=== PATIENT | male | born 1945 | race Caucasian/White ===

== ENCOUNTER → 2017-05-19 | Outpatient (CLI) | payer OTHER ==
[~2017-05-19] MED LIST: ALAVERT10 M1 PO; ATORVASTATIN CA20 MG PO; CIALIS20 MG PO; ECOTRIN81 MG PO; FISH OIL 1,001000 M1 PO; PLAVIX 75 MG TA75 MG PO; POTASSIUM GLUC500 MG PO; TOPROL XL25 MG PO; VALACYCLOVIR1000 MG PO
--- NOTE | 2017-05-30 21:48 | ONC ---
[place] [address] RADIATION ONCOLOGY NOTE Name: SONAM VALENCIA Room: [facility]#: [id number] Admission: 05/19/17 Attend Phys: Juan Carlos Jackson MD Discharge: Date of : 41 Report #: [id number] THIS REPORT FOR: //name// CC: Juan Carlos Lund DATE OF SERVICE: 05/19/2017 REFERRING PHYSICIANS: Samra Mendez MD; Aniceto Davis MD: and Geoff Oh MD. [facility] phone is [phone]. PRIMARY SITE AND HISTOPATHOLOGY: The patient received chemoradiotherapy for a stage STEPHENIE base of tongue cancer. He underwent a neck dissection. He completed his radiation therapy on 06/19/2013. PROCEDURE: Nasopharyngolaryngoscopy. FINDINGS: On nasopharyngolaryngoscopy via the left nostril after administration of a small amount of 2% viscous lidocaine orally and 2% viscous lidocaine to the left nostril via a cotton swab, there were no visible lesions in the nasopharynx, there were no visible lesions in the posterior oropharynx and there were no visible lesions involving the base of tongue. The true vocal cords were normally mobile bilaterally without any visible lesions. There was no evidence of head and neck cancer. Thank you for allowing me to participate in the care of this patient. <ELECTRONICALLY SIGNED> By: Juan Carlos Jackson MD 05/30/17 2148 1112 1151Djill Jackson MD /nt
--- NOTE | 2017-05-30 21:56 | ONC ---
[address] [address] RADIATION ONCOLOGY NOTE Name: SONAM VALENCIA Room: [facility]#: [id number] Admission: 05/19/17 Attend Phys: Juan Carlos Jackson MD Discharge: Date of : 41 Report #: [id number] THIS REPORT FOR: //name// CC: Juan Carlos Oh MD DATE OF SERVICE: 05/19/2017 REFERRING PHYSICIANS: Samra Mendez MD; Aniceto Davis MD; Patricio Lund DO and Geoff Oh MD. [facility] phone is [phone]. PRIMARY SITE AND HISTOPATHOLOGY: The patient had findings consistent with a stage STEPHENIE base of tongue cancer. The patient underwent a neck dissection that was followed by chemoradiotherapy. Radiation treatments were completed on 06/19/2013. INTERVAL NOTE: The patient has a good appetite. He has xerostomia that effects how he is able to eat certain foods. It is a little more difficult to eat dry foods. SOCIAL HISTORY: The patient is retired. He is . He has 2 daughters. Cigarettes: he smoked for about 10-20 years and he quit smoking around 01/2013. MEDICATIONS: Atorvastatin, Cialis, Ecotrin, valacyclovir, loratadine, metoprolol ER. REVIEW OF SYSTEMS: RESPIRATORY: The patient's breathing was baseline. The patient was not short of breath during his appointment. MUSCULOSKELETAL: He had good range of motion of his upper extremities. PHYSICAL EXAMINATION: VITAL SIGNS: The patient weighed 197 pounds on 05/19/2017 and 199 pounds on 09/21/2016. On 05/19/2017, blood pressure was 122/70, pulse was 61, respirations were 18, oxygen saturation was 96%. LYMPH NODES: He had no palpable cervical or supraclavicular lymphadenopathy. HEAD, EYES, EARS, NOSE AND THROAT: Mouth had no suspicious visible lesions or suspicious palpable lesions. On nasopharyngolaryngoscopy after administration of a small amount of 2% viscous lidocaine orally and 2% viscous lidocaine to the left nostril using a cotton swab, there were no visible lesions in the nasopharynx and no visible lesions in the posterior oropharynx[place] [address] RADIATION ONCOLOGY NOTE Name: SONAM VALENCIA Room: [facility]#: [id number] Admission: 05/19/17 Attend Phys: Juan Carlos Jackson MD Discharge: Date of : 41 Report #: [id number] visible lesions involving the base of tongue. The true vocal cords were normally mobile bilaterally without any visible lesions. HEART: Had a regular rate and rhythm without murmur. LUNGS: were clear to auscultation. LABORATORY DATA: From 05/11/2017, TSH was 3.19, which is within normal limits. ASSESSMENT AND PLAN: 1. History of head and neck cancer- There is no evidence of head and neck cancer at this time. The patient was given a requisition for a TSH around 01/2018 and the patient was asked to schedule a follow up appointment to see me afterwards. 2. Dental care- The patient continues to use fluoride trays and follows up with his dentist who prescribes fluoride to apply to his teeth. 3. Smoking history- The patient quit smoking in 2012. A requisition will be written for a screening chest CT for the patient. 4. Hyperlipidemia- The patient takes atorvastatin and that is managed by his referring physicians. 5. Hypertension- The patient takes metoprolol ER and that is managed by his referring physicians. Thank you for allowing me to participate in the care of this patient. <ELECTRONICALLY SIGNED> By: Juan Carlos Jackson MD 05/30/17 2156 1118 1243Djill Jackson MD /nt
== END | disposition home or self-care (01) ==
LOC: M.RTH 02:30
DX: Z85.810 Personal history of malignant neoplasm of tongue (principal); I10 Essential (primary) hypertension; E78.5 Hyperlipidemia, unspecified; Z87.891 Personal history of nicotine dependence; Z79.899 Other long term (current) drug therapy

== ENCOUNTER → 2018-01-12 | Outpatient (CLI) | payer OTHER ==
--- NOTE | ~2018-01-12 | ONC ---
[place] [address] RADIATION ONCOLOGY NOTE Name: VALENCIASONAM ANN Room: [facility]#: [id number] Admission: 01/12/18 Attend Phys: Juan Carlos Jackson MD Discharge: Date of : 41 Report #: [id number] THIS REPORT FOR: //name// CC: Juan Carlos Mendez DATE OF SERVICE: 01/12/2018 REFERRING PHYSICIANS: Dr. Samra Mendez, Aniceto Davis MD; Geoff Oh MD and Dr. Patricio Mike. [facility] phone number is [phone]. PRIMARY SITE AND HISTOPATHOLOGY: The patient received chemoradiotherapy for stage 4A base of tongue cancer. He underwent a neck dissection. He completed his radiation therapy on 06/19/2013. Findings on nasopharyngolaryngoscopy via the left nostril after administration of a small amount of 2% viscous lidocaine orally and 2% viscous lidocaine to the left nostril via cotton swab, there were no visible lesions in the nasopharynx and no visible lesions in the posterior oropharynx and no visible lesions involving the base of tongue. The true vocal cords are normally mobile bilaterally without visible lesions. There is no evidence of head and neck cancer. Thank you for allowing me to participate in the care of this patient. By: 1140 MD kerline Boone
--- NOTE | ~2018-01-12 | ONC ---
[address] [address] RADIATION ONCOLOGY NOTE Name: SONAM VALENCIA Room: [facility]#: [id number] Admission: 01/12/18 Attend Phys: Juan Carlos Jackson MD Discharge: Date of : 41 Report #: [id number] THIS REPORT FOR: //name// CC: Juan Carlos Mendez DATE OF SERVICE: 01/12/2018 REFERRING PHYSICIANS: Dr. Samra Mendez, Dr. Aniceto Davis, Dr. Patricio Lund and Geoff Oh MD [facility] phone is [phone]. PRIMARY SITE AND HISTOPATHOLOGY: The patient had findings consistent with a stage 4A base of tongue cancer. The patient underwent a neck dissection that was followed by chemoradiotherapy. Radiation treatments were completed on 06/19/2013. INTERVAL NOTE: The patient has a good appetite. He feels like his taste has continued to improve. He has xerostomia, so he avoids certain dry foods. SOCIAL HISTORY: The patient is retired. He is . He has 2 daughters. Cigarettes, he smoked for about 10-20 years and he quit smoking around 01/2013. MEDICATIONS: Atorvastatin, Cialis, Ecotrin, valacyclovir, loratadine, metoprolol ER. REVIEW OF SYSTEMS: RESPIRATORY: The patient's breathing was baseline. The patient was not short of breath during his appointment. MUSCULOSKELETAL: He has good range of motion of his upper extremities. PHYSICAL EXAMINATION: VITAL SIGNS: The patient weighed 196.8 pounds on 01/12/2018, 197 pounds on 05/19/2017, and on 01/12/2018 blood pressure 113/56, pulse 62, respirations 18, oxygen saturation is 98%. LYMPH NODES: He had no palpable cervical or supraclavicular lymphadenopathy. HEAD, EYES, EARS, NOSE AND THROAT: Mouth had no suspicious visible lesions or suspicious palpable lesions. On nasopharyngolaryngoscopy after administration of a small amount of 2% viscous lidocaine orally and 2% viscous lidocaine to the left nostril, there were no visible lesions in the nasopharynx. There were no visible lesions in the posterior oropharynx. There were no visible lesions involving the base of tongue. True vocal cords were normally mobile bilaterally without any visible lesions. HEART: Had a regular rate and rhythm without murmur. LUNGS: [place] [address] RADIATION ONCOLOGY NOTE Name: ERIKSONAMJOHNNY ANN Room: [facility]#: [id number] Admission: 01/12/18 Attend Phys: Juan Carlos Jackson MD Discharge: Date of : 41 Report #: [id number] LABORATORY DATA: TSH was 3.4 on 01/07/2018, which is within normal limits. ASSESSMENT AND PLAN: 1. History of head and neck cancer. There is no evidence of head and neck cancer at this time. The patient was given a requisition for a TSH around 09/2018. He was asked to schedule a followup appointment to see me afterwards. 2. Dental care. The patient continues to use fluoride trays and follows up with his dentist who prescribes fluoride to apply to his teeth. 3. Cigarette smoking. He was smoking cigars for the latter part of when he was smoking. He quit in 2012. 4. Hyperlipidemia. The patient takes atorvastatin and that is managed by his referring physicians. 5. Hypertension. The patient takes metoprolol ER and that is managed by his referring physicians. Thank you for allowing me to participate in the care of this patient. By: 1146 1200Juan Carlos Jackson MD /berry
== END ==
LOC: M.RTH 06:06
DX: Z08 Encounter for follow-up examination after completed treatment for malignant neoplasm (principal); E78.5 Hyperlipidemia, unspecified; I10 Essential (primary) hypertension; F17.211 Nicotine dependence, cigarettes, in remission; Z85.89 Personal history of malignant neoplasm of other organs and systems

== ENCOUNTER → 2018-10-07 | Outpatient (CLI) | payer OTHER ==
--- NOTE | 2018-10-24 13:06 | ONC ---
[place] [address] RADIATION ONCOLOGY NOTE Name: SONAM VALENCIA Room: [facility].#: [id number] Admission: 10/07/18 Attend Phys: Juan Carlos Jackson MD Discharge: Date of : 41 Report #: [id number] THIS REPORT FOR: //name// CC: Juan Carlos Gaytan REFERRING PHYSICIANS: Include Dr. Samra Mendez, Dr. Patricio Lund, Dr. Aniceto Davis and Dr. Geoff Oh. [facility] phone is [phone]. PRIMARY SITE AND HISTOPATHOLOGY: The patient received chemoradiotherapy for a stage STEPHENIE base of tongue cancer and underwent a neck dissection and completed his radiation therapy on 06/19/2013. FINDINGS: On nasopharyngolaryngoscopy via the left nostril after administration of a small amount of 2% viscous lidocaine orally and 2% viscous lidocaine to the left nostril via a cotton swab, there were no visible lesions in the nasopharynx. He did have some fullness in the right vallecula area compared to the left vallecula area and that area also appeared somewhat inflamed. Otherwise, the epiglottis appeared unremarkable. The true vocal cords were normally mobile without visible lesions. So, the patient will have a CT ordered and shall be referred to his ear, nose and throat physician as well as being started on antibiotics and then follow up with ak afterwards. Thank you for allowing me to participate in the care of this patient. <ELECTRONICALLY SIGNED> By: Juan Carlos Jackson MD 10/24/18 1306 1236 0042Djill Jackson MD /nt
--- NOTE | 2018-10-24 13:28 | ONC ---
[address] [address] RADIATION ONCOLOGY NOTE Name: SONAM VALENCIA Room: [facility]#: [id number] Admission: 10/07/18 Attend Phys: Juan Carlos Jackson MD Discharge: Date of : 41 Report #: [id number] THIS REPORT FOR: //name// CC: Juan Carlos Gaytan RADIATION ONCOLOGY FOLLOWUP NOTE DATE OF SERVICE: 10/07/2018 REFERRING PHYSICIANS: Dr. Samra Mendez, Dr. Patricio Lund, Dr. Davis and Dr. Gaytan. [facility] phone is [phone]. PRIMARY SITE AND HISTOPATHOLOGY: The patient had findings consistent with a stage STEPHENIE base of tongue cancer. The patient underwent a neck dissection that was followed by chemoradiotherapy. Radiation treatments were completed on 06/19/2013. INTERVAL NOTE: The patient has a good appetite. He tries to avoid dry foods. He usually eats moist foods. He likes to eat darker meat. He said that he uses fluoride trays and has been following up with his dentist who provides his fluoride for him. SOCIAL HISTORY: The patient is retired. He is . He has 2 daughters. Cigarettes, he smoked for about 10-20 years and he quit smoking around 01/2013. MEDICATIONS: Atorvastatin, Cialis, Ecotrin, valacyclovir, loratadine, metoprolol ER. REVIEW OF SYSTEMS: RESPIRATORY: The patient's breathing was baseline. He was not short of breath. MUSCULOSKELETAL: He had good range of motion of his upper extremities. PHYSICAL EXAMINATION: VITAL SIGNS: The patient weighed 196.2 pounds on 10/07/2018, and 196.8 pounds on 01/12/2018. On 10/07/2018 blood pressure was 103/59, pulse 58, respirations 18, oxygen saturation 96%. LYMPH NODES: He had no palpable cervical or supraclavicular lymphadenopathy. HEAD, EYES, EARS, NOSE AND THROAT: Mouth had no suspicious visible lesions or suspicious palpable lesions. On nasopharyngolaryngoscopy, after administration of a small amount of 2% viscous lidocaine orally and 2% viscous lidocaine to the left nostril, there were no visible lesions in the nasopharynx and the patient did have some fullness in the left vallecula region. The epigl[place] [address] RADIATION ONCOLOGY NOTE Name: SONAM VALENCIA Room: [facility]#: [id number] Admission: 10/07/18 Attend Phys: Juan Carlos Jackson MD Discharge: Date of : 41 Report #: [id number] lesions and the true vocal cords were normally mobile bilaterally. HEART: Had a regular rate and rhythm without murmur. LUNGS: were Clear to auscultation. LABORATORY DATA: The patient's TSH was 2.93 on 09/27/2018 which was within normal limits. ASSESSMENT AND PLAN: 1. History of head and neck cancer- The patient has some fullness in the left vallecular area, this could be due to pharyngitis, so he was given a prescription for Augmentin. He was also set up for a neck CT and then to see his ear, nose and throat physician and then follow up with me afterwards to help confirm that this is from an infectious process and not due to recurrent cancer. 2. Dental care- The patient follows up with his dentist and uses his fluoride trays. 3. Cigarette smoking- He was smoking cigars for a while and he supposedly quit smoking cigars around 2012. 4. Hyperlipidemia- The patient takes atorvastatin and that is managed by his referring physicians. 5. Hypertension- The patient takes metoprolol ER and that is managed by his referring physicians. Thank you for allowing me to participate in the care of this patient. <ELECTRONICALLY SIGNED> By: Juan Carlos Jackson MD 10/24/18 1328 1249 0053Djill Jackson MD /nt
== END ==
LOC: M.RTH 09:30
DX: Z08 Encounter for follow-up examination after completed treatment for malignant neoplasm (principal); I10 Essential (primary) hypertension; E78.5 Hyperlipidemia, unspecified; Z85.810 Personal history of malignant neoplasm of tongue; Z79.899 Other long term (current) drug therapy; Z87.891 Personal history of nicotine dependence

== ENCOUNTER → 2018-10-28 | Outpatient (CLI) | payer OTHER ==
--- NOTE | ~2018-10-28 | ONC ---
[address] [address] RADIATION ONCOLOGY NOTE Name: SONAM VALENCIA Room: [facility]#: [id number] Admission: 10/28/18 Attend Phys: Juan Carlos Jackson MD Discharge: Date of : 41 Report #: [id number] THIS REPORT FOR: //name// CC: Juan Carlos Mendez REFERRING PHYSICIANS: Dr. Samra Mendez, Dr. Geoff Oh, Dr. Aniceto Davis, Dr. Patricio Lund, Dr. Gaytan. [facility] phone is [phone]. PRIMARY SITE AND HISTOPATHOLOGY: The patient's findings are consistent with a stage 4A base of tongue cancer. The patient underwent a neck dissection that was followed by chemoradiotherapy. Radiation treatments were completed on 06/19/2013. INTERVAL NOTE: The patient has a good appetite. He tends to avoid dry foods and eats moist foods. He uses fluoride trays and has been following up with his dentist who provides his fluoride for him. SOCIAL HISTORY: The patient is retired. He is . He has 2 daughters. Cigarettes, he smoked about 10-20 years and he quit smoking around January 2013. MEDICATIONS: Atorvastatin, Cialis, Ecotrin, valacyclovir, loratadine, metoprolol ER. REVIEW OF SYSTEMS: RESPIRATORY: The patient's breathing was baseline. He was not short of breath. MUSCULOSKELETAL: He has good range of motion of his upper extremities. PHYSICAL EXAMINATION: VITAL SIGNS: The patient weighed 194 pounds on 10/28/2018 and 186.2 pounds on 10/07/2018 and on 10/28/2018 blood pressure is 116/63, pulse 58, respirations 16, oxygen saturation was 94%. LYMPH NODES: The patient had no palpable cervical or supraclavicular lymphadenopathy. HEAD, EYES, EARS, NOSE AND THROAT: Mouth had no suspicious visible lesions or suspicious palpable lesions. On nasopharyngolaryngoscopy, after administration of a small amount of 2% viscous lidocaine orally and 2% viscous lidocaine to left nostril, there were no visible lesions in the nasopharynx and there were no visible lesions in the base of tongue area. There were no visible lesions in the epiglottic area. The area where he had fullness previously in the vallecula has resolved after antibiotics and the true vocal cords are normally mobile bilaterally. HEART: Had a regular rate and rhythm without murmur. LUNGS: [place] [address] RADIATION ONCOLOGY NOTE Name: VALENCIASONAM MARISSA Room: [facility]#: [id number] Admission: 10/28/18 Attend Phys: Juan Carlos Jackson MD Discharge: Date of : 41 Report #: [id number] LABORATORY DATA: From 09/27/2018; TSH was 2.93, which was within normal limits. RADIOLOGIC DATA: The patient had a neck CT scan on 10/20/2018. There were no soft tissue neck masses or lymphadenopathy. 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 ASSESSMENT AND PLAN: 1. History of head and neck cancer. There is no evidence of neck cancer at this time. The patient was given a requisition for TSH in about 3 months and the patient was asked to schedule a followup appointment to see me afterwards. 2. Dental care. The patient looks like has periodontal disease around the most posterior left maxillary molar. There was a question of a lucency in that area. There is also question about oroantral fistula and he does see a dentist. I will go ahead and refer him to the oral surgeon, Dr. Canchola and possibly for hyperbaric oxygen if it is felt that there may be issues with osteonecrosis in that area and then again have the patient follow up with me in about 3 months. 3. Cigarette smoking. He was smoking cigars. He quit smoking in 2012. 4. Hyperlipidemia. The patient takes atorvastatin and that is managed by his referring physicians. 5. Hypertension. The patient takes metoprolol ER and that is managed by his referring physicians. Thank you for allowing me to participate in the care of this patient. By: 1050 1536Juan Carlos Jackson MD /berry
--- NOTE | ~2018-10-28 | ONC ---
[address] [address] RADIATION ONCOLOGY NOTE Name: SONAM VALENCIA Room: [facility]#: [id number] Admission: 10/28/18 Attend Phys: Juan Carlos Jackson MD Discharge: Date of : 41 Report #: [id number] THIS REPORT FOR: //name// CC: Juan Carlos Mendez REFERRING PHYSICIANS: Dr. Samra Mendez, Dr. Patricio Lund, Dr. Aniceto Davis, Dr. Geoff Oh and Dr. Gaytan. [facility] phone is [phone]. PRIMARY SITE AND HISTOPATHOLOGY: The patient received chemoradiotherapy for stage 4A base of tongue cancer, underwent a neck dissection completed radiation therapy on 06/19/2013. FINDINGS: On nasopharyngolaryngoscopy via the left nostril after administration of small amount of 2% viscous lidocaine orally and 2% viscous lidocaine to left nostril via cotton swab, there were no visible lesions in the nasopharynx. There were no visible lesions in the base of tongue area. The area where he had fullness in the past in the right vallecula has resolved. The vallecula looks normal. The true vocal cords are normally mobile bilaterally. So there is no evidence of cancer. It appears he had some pharyngitis that resolved with antibiotics. So I said, there is no evidence of head and neck cancer. Thank you for allowing me to participate in the care of this patient. By: 1044 1320MD kerline Desai
== END ==
LOC: M.RTH 05:35
DX: Z08 Encounter for follow-up examination after completed treatment for malignant neoplasm (principal); Z85.810 Personal history of malignant neoplasm of tongue; Z79.899 Other long term (current) drug therapy; Z92.3 Personal history of irradiation

== ENCOUNTER → 2019-01-20 | Outpatient (CLI) | payer OTHER ==
--- NOTE | 2019-02-04 20:56 | ONC ---
[place] [address] RADIATION ONCOLOGY NOTE Name: SONAM VALENCIA Room: [facility]#: [id number] Admission: 01/20/19 Attend Phys: Juan Carlos Jackson MD Discharge: Date of : 41 Report #: [id number] THIS REPORT FOR: //name// CC: Juan Carlos Lora DATE OF PROCEDURE: 01/20/2019 REFERRING PHYSICIANS: Dr. Samra Mendez, Dr. Patricio Lund, Dr. Lora, Dr. Aniceto Davis, Dr. Geoff Oh. [facility] phone number is [phone]. PRIMARY SITE AND HISTOPATHOLOGY: The patient received chemoradiotherapy for a stage STEPHENIE base of tongue cancer, and underwent a neck dissection and completed radiation therapy on 06/19/2013. FINDINGS: On nasopharyngolaryngoscopy via the left nostril after administration of a small amount of 2% viscous lidocaine orally and 2% viscous lidocaine to the left nostril via a cotton swab, there were no visible lesions in the nasopharynx. There were no visible lesions in the base of tongue area. The true vocal cords were normally mobile bilaterally. There is no evidence of head and neck cancer. Thank you for allowing me to participate in the care of this patient. <ELECTRONICALLY SIGNED> By: Juan Carlos Jackson MD 02/04/19 2056 1453 0217MD kerline Desai
--- NOTE | 2019-02-04 22:15 | ONC ---
[address] [address] RADIATION ONCOLOGY NOTE Name: SONAM VALENCIA Room: [facility]#: [id number] Admission: 01/20/19 Attend Phys: Juan Carlos Jackson MD Discharge: Date of : 41 Report #: [id number] THIS REPORT FOR: //name// CC: Juan Carlos Lora REFERRING PHYSICIANS: Dr. Samra Mendez, Dr. Geoff Oh, Dr. Aniceto Davis, Dr. Patricio Lund, Dr. Gaytan. [facility] phone is [phone]. PRIMARY SITE AND HISTOPATHOLOGY: The patient had a history of a stage STEPHENIE base of tongue cancer. He underwent a neck dissection followed by chemoradiotherapy. Radiation treatments were completed on 06/19/2013. INTERVAL NOTE: The patient has a good appetite. He tends to avoid dry foods. He eats moist foods. He is gaining weight. He uses fluoride trays and his dentist provides the fluoride for him. SOCIAL HISTORY: The patient is retired. He is . He has 2 daughters. Cigarettes: he smoked about 10-20 years and he quit smoking around 01/2013. MEDICATIONS: Include atorvastatin, Cialis, Ecotrin, valacyclovir, loratadine, metoprolol ER. REVIEW OF SYSTEMS: RESPIRATORY: The patient's breathing was baseline. He was not short of breath. MUSCULOSKELETAL: He has good range of motion of his upper extremities. PHYSICAL EXAMINATION: VITAL SIGNS: The patient weighed 197.8 pounds on 01/20/2019, 194 pounds on 10/28/2018. On 01/20/2019, blood pressure is 114/72, pulse 55, oxygen saturation 98%, respirations 18. LYMPH NODES: He had no palpable cervical or supraclavicular lymphadenopathy. HEAD, EYES, EARS, NOSE AND THROAT: Mouth had no suspicious visible lesions or suspicious palpable lesions. On nasopharyngolaryngoscopy, after administration of a small amount of 2% viscous lidocaine orally and 2% viscous lidocaine to the left nostril, there were no visible lesions in the nasopharynx, and no visible lesions in the base of tongue area. There were no visible lesions in the epiglottic area. HEART: Had a regular rate and rhythm without murmur. LUNGS: [place] [address] RADIATION ONCOLOGY NOTE Name: SONAM VALENCIA MARISSA Room: [facility]#: [id number] Admission: 01/20/19 Attend Phys: Juan Carlos Jackson MD Discharge: Date of : 41 Report #: [id number] LABORATORY DATA: TSH was 3.50 on 01/18/2019, white blood count was 3.9, hemoglobin 14.6, platelets 75,000 and creatinine 1.17. Sodium 142, potassium was elevated at 5.8. RADIOLOGIC DATA: The patient had a neck CT on 10/20/2018 which showed findings consistent with possible left maxillary molar periodontal disease with some periapical lucency and questionable oral antral fistula. ASSESSMENT AND PLAN: 1. History of head and neck cancer- There is no evidence of head and neck cancer at this time. The patient was given a requisition for a basic metabolic panel and TSH in about 3 months. He was asked to schedule a followup appointment to see me afterwards. 2. Dental care- He was referred to the [facility] for possible maxillary molar periodontal disease. 3. Hyperlipidemia- The patient takes atorvastatin and that is managed by his referring physicians. 4. Hypertension- The patient takes metoprolol and that is managed by his referring physicians. 5. Hyperkalemia- This could be due to a hemolyzed specimen since he does not really have an obvious reason for hyperkalemia. Though, he is seeing his primary care physician on Wednesday, so a referral will be made to the primary care physician to manage this issue. Thank you for allowing me to participate in the care of this patient. <ELECTRONICALLY SIGNED> By: Juan Carlos Jackson MD 02/04/19 2215 [id number] [id number] Jackson MD /nt
== END ==
LOC: M.RTH 05:16
DX: Z08 Encounter for follow-up examination after completed treatment for malignant neoplasm (principal); Z85.810 Personal history of malignant neoplasm of tongue

== ENCOUNTER → 2019-04-21 | Outpatient (CLI) | payer OTHER ==
--- NOTE | ~2019-04-21 | ONC ---
[address] [address] RADIATION ONCOLOGY NOTE Name: ERIKSONAM ANN Room: [facility].#: [id number] Admission: 04/21/19 Attend Phys: Juan Carlos Jackson MD Discharge: Date of : 41 Report #: [id number] THIS REPORT FOR: //name// CC: Juan Carlos Mendez DATE OF SERVICE: 04/21/2019 PROCEDURE NOTE LOCATION: [facility], phone is [phone]. PRIMARY SITE AND HISTOPATHOLOGY: The patient received chemoradiotherapy for a stage 4A base of tongue cancer. He underwent a neck dissection and completed the radiation therapy on 06/19/2013. FINDINGS: On nasopharyngolaryngoscopy via left nostril after administration of a small amount of 2% viscous lidocaine orally and 2% viscous lidocaine to the left nostril via a cotton swab, there were no visible lesions in the nasopharynx. There were no visible lesions in the base of tongue area. The true vocal cords were normally mobile bilaterally with no evidence of head and neck cancer. Thank you for allowing me to participate in the care of this patient. By: [id number] Jackson MD /nt
--- NOTE | ~2019-04-21 | ONC ---
[address] [address] RADIATION ONCOLOGY NOTE Name: ERIKSONAM ANN Room: [facility]#: [id number] Admission: 04/21/19 Attend Phys: Juan Carlos Jackson MD Discharge: Date of : 41 Report #: [id number] THIS REPORT FOR: //name// CC: Juan Carlos Mendez DATE OF SERVICE: 04/21/2019 RADIATION ONCOLOGY FOLLOWUP NOTE REFERRING PHYSICIANS: Dr. Samra Mendez; Dr. Geoff Oh; Aniceto Davis MD; Dr. Patricio Lund; and Dr. Lora. LOCATION: [facility], phone is [phone]. PRIMARY SITE AND HISTOPATHOLOGY: The patient had a history of stage 4A base of tongue cancer. He underwent a neck dissection followed by chemoradiotherapy. Radiation treatments were completed on 06/19/2013. INTERVAL NOTE: The patient has a good appetite. He tends to eat moist foods. He tends to avoid dry foods. His weight is stable. He uses fluoride trays and his dentist provides the fluoride for him. SOCIAL HISTORY: The patient is retired. He is . He has 2 daughters. Cigarettes, he smoked about 10-20 years and he quit smoking around 01/2013. MEDICATIONS: Include atorvastatin, Cialis, Ecotrin, valacyclovir, loratadine, and metoprolol ER. REVIEW OF SYSTEMS: RESPIRATORY: The patient's breathing was baseline. He was not short of breath. MUSCULOSKELETAL: He had good range of motion of his upper extremities. PHYSICAL EXAMINATION: VITAL SIGNS: The patient weighed 197 pounds on 04/21/2019 and 197.8 pounds on 01/20/2019 and on 04/21/2019, blood pressure was 112/68, pulse 55, respirations 18. LYMPH NODES: He had no palpable cervical or supraclavicular lymphadenopathy. HEAD, EYES, EARS, NOSE, AND THROAT: Mouth had no suspicious visible lesions or suspicious palpable lesions. On nasopharyngolaryngoscopy, after administration of a small amount of 2% viscous lidocaine orally and 2% viscous lidocaine to the left nostril, there were no visible lesions in the nasopharynx, no visible lesions in the base of tongue area. There were no visible lesions in the epiglottic area. HEART: Regular rate and rhythm without murmur. LUNGS: [place] [address] RADIATION ONCOLOGY NOTE Name: ERIKSONAMJOHNNY ANN Room: [facility]#: [id number] Admission: 04/21/19 Attend Phys: Juan Carlos Jackson MD Discharge: Date of : 41 Report #: [id number] LABORATORY DATA: From 04/12/2019, BUN 13, creatinine 0.91. Sodium 140, potassium 4.8. AST 30, ALT 27. TSH 2.88. ASSESSMENT AND PLAN: 1. History of head and neck cancer. There is no evidence of head and neck cancer at this time. Requisition was given to the patient for a TSH in about 10/2019 and he was asked to schedule a followup appointment to see me afterwards. 2. Dental care. The patient indicated he is going to have 2 teeth extracted from the left upper maxillary area, so he was referred for hyperbaric oxygen treatments prior to extraction and after extraction. 3. Hyperlipidemia. The patient takes atorvastatin and that is managed by his referring physicians. 4. Hypertension. The patient takes metoprolol and that is managed by his referring physicians. Thank you for allowing me to participate in the care of this patient. By: 1048 [id number] Carlos Jackson MD /berry
== END | disposition home or self-care (01) ==
LOC: M.RTH 09:00
DX: Z08 Encounter for follow-up examination after completed treatment for malignant neoplasm (principal); Z85.810 Personal history of malignant neoplasm of tongue; Z85.818 Personal history of malignant neoplasm of other sites of lip, oral cavity, and pharynx; I10 Essential (primary) hypertension; E78.5 Hyperlipidemia, unspecified; Z87.891 Personal history of nicotine dependence; Z79.899 Other long term (current) drug therapy; Z98.890 Other specified postprocedural states

== ENCOUNTER → 2019-11-17 | Outpatient (CLI) | payer OTHER ==
--- NOTE | 2019-12-03 20:50 | ONC ---
[address] [address] RADIATION ONCOLOGY NOTE Name: SONAM VALENCIA Room: [facility]#: [id number] Admission: 11/17/19 Attend Phys: Juan Carlos Jackson MD Discharge: Date of : 41 Report #: [id number] THIS REPORT FOR: //name// CC: Juan Carlos Lund DATE OF PROCEDURE: 11/17/2019 REFERRING PHYSICIANS: Dr. Samra Mendez, Dr. Geoff Oh, Dr. Aniceto Davis, Dr. Lynn from Orthopedics, Dr. Patricio Lund from Cardiology. LOCATION: [facility], phone is [phone]. PRIMARY SITE AND HISTOPATHOLOGY: The patient received chemotherapy/radiation therapy for a stage STEPHENIE base of tongue cancer. The patient underwent a neck dissection, and completed radiation therapy on 06/19/2013. FINDINGS: On nasopharyngolaryngoscopy via the left nostril, after administration of a small amount of 2% viscous lidocaine orally and 2% viscous lidocaine to the left nostril via a cotton swab, there were no visible lesions in the nasopharynx. There were no visible lesions in the base of tongue area. The true vocal cords were normally mobile bilaterally with no evidence of head and neck cancer. Thank you for allowing me to participate in the care of this patient. <ELECTRONICALLY SIGNED> By: Juan Carlos Jackson MD 12/03/19 2050 1131 [id number] Carlos Jackson MD /nt
--- NOTE | 2019-12-03 21:26 | ONC ---
[address] [address] RADIATION ONCOLOGY NOTE Name: SONAM VALENCIA Room: [facility]#: [id number] Admission: 11/17/19 Attend Phys: Juan Carlos Jackson MD Discharge: Date of : 41 Report #: [id number] THIS REPORT FOR: //name// CC: Juan Carlos Lora DATE OF SERVICE: 11/17/2019 RADIATION ONCOLOGY FOLLOWUP NOTE REFERRING PHYSICIANS: Include Samra Mendez MD; Geoff Oh MD; Aniceto Davis MD; Patricio Lund DO; and Dr. Lora. Radiation Oncology phone is [phone]. PRIMARY SITE AND HISTOPATHOLOGY: The patient has a history of stage STEPHENIE base of tongue cancer. He underwent a neck dissection followed by chemotherapy and radiation therapy. Radiation treatments were completed on 06/19/2013. INTERVAL NOTE: The patient felt like he has a good appetite. He tends to eat moist foods. He likes to eat like chicken thighs. He had seen the [facility] dentist, but he also follows up with his own dentist, Dr. Angulo and the note from Dr. Angulo indicated that he was referring him to the oral surgeon, Dr. Arriaza, for consideration for extraction of teeth #14 and #15. Otherwise, he says that Dr. Angulo provides his fluoride for him and that he uses fluoride trays. SOCIAL HISTORY: The patient is retired. He is . He has 2 daughters. Cigarettes he smoked about 10-20 years and he quit smoking around 01/2013. MEDICATIONS: Include atorvastatin, Cialis, Ecotrin, valacyclovir, loratadine, and metoprolol ER. REVIEW OF SYSTEMS: RESPIRATORY: The patient's breathing was baseline. He was not short of breath. MUSCULOSKELETAL: He has good range of motion of his upper extremities. PHYSICAL EXAMINATION: VITAL SIGNS: The patient weighed 198 pounds on 11/17/2019 and 197 pounds on 04/21/2019. On 11/17/2019, blood pressure was 138/69, pulse 56, respirations 18, temperature 97.7 degrees Fahrenheit, oxygen saturation was 100%. LYMPH NODES: He had no palpable cervical [place] [address] RADIATION ONCOLOGY NOTE Name: VALENCIASONAM MARISSA Room: [facility]#: [id number] Admission: 11/17/19 Attend Phys: Juan Carlos Jackson MD Discharge: Date of : 41 Report #: [id number] Mouth had no suspicious visible lesions or suspicious palpable lesions. On nasopharyngolaryngoscopy via the left nostril after applying 2% viscous lidocaine orally and 2% viscous lidocaine to the left nostril, there were no visible lesions in the nasopharynx. There were no visible lesions in the base of tongue area. There were no visible lesions in the epiglottic area. HEART: Had a regular rate and rhythm without murmur. LUNGS: were clear to auscultation. LABORATORY DATA: The patient had a TSH drawn at [facility] on 11/14/2019 and his TSH was 3.56, which was within normal range of 0.4-4.5. 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 ASSESSMENT AND PLAN: 1. History of head and neck cancer- There is no evidence of head and neck cancer at this time. A requisition was given to the patient for a TSH in about 04/2020 and the patient was asked to schedule a followup appointment to see me afterwards. 2. Dental care- The patient receives PreviDent fluoride from his dentist and the dentist had referred him to the oral surgeon, Dr. Arriaza, to possibly get extractions of teeth #14 and #15. We told the patient that we can order hyperbaric oxygen if the oral surgeon wishes to have that ordered. 3. Hyperlipidemia- The patient takes atorvastatin and that is managed by his referring physicians. 4. Hypertension- The patient takes metoprolol and that is managed by his referring physicians. Thank you for allowing me to participate in the care of this patient. <ELECTRONICALLY SIGNED> By: Juan Carlos Jackson MD 12/03/19 2126 1148 1300Juan Carlos Jackson MD /berry
== END | disposition home or self-care (01) ==
LOC: M.RTH 04:36
PROVIDERS: ATTEND Radiology Radiation Oncology
DX: Z08 Encounter for follow-up examination after completed treatment for malignant neoplasm (principal); Z85.810 Personal history of malignant neoplasm of tongue; I10 Essential (primary) hypertension; E78.5 Hyperlipidemia, unspecified; Z98.890 Other specified postprocedural states; Z79.899 Other long term (current) drug therapy; Z87.891 Personal history of nicotine dependence; Z79.82 Long term (current) use of aspirin

== ENCOUNTER → 2020-05-03 | Outpatient (CLI) | payer OTHER ==
--- NOTE | ~2020-05-03 | ONC ---
[address] [address] RADIATION ONCOLOGY NOTE Name: SONAM VALENCIA Room: [facility]#: [id number] Admission: 05/03/20 Attend Phys: Juan Carlos Jackson MD Discharge: Date of : 41 Report #: [id number] THIS REPORT FOR: cc: Samra Mendez MD, Lin W. MD ~ Juan Carlos Jackson MD DATE OF SERVICE: 05/03/2020 RADIATION ONCOLOGY FOLLOWUP NOTE REFERRING PHYSICIANS: Samra Mendez MD; Aniceto Davis MD; Geoff Oh MD; Raoul Kohler MD; Patricio Lund DO [facility] phone is [phone]. PRIMARY SITE AND HISTOPATHOLOGY: The patient had a history of a stage 4A base of tongue cancer. He underwent a neck dissection followed by chemotherapy and radiation therapy. Radiation treatments were completed on 06/19/2013. INTERVAL NOTE: The patient has a good appetite. He tends to eat moist foods. He recently got his second injection for his COVID-19 vaccine. He has some periodontal disease in the upper left teeth and he has no discomfort from that. He ended up just monitoring that area and he uses fluoride trays and his dentist provides fluoride for him. SOCIAL HISTORY: The patient is retired. He is . He has 2 daughters. Cigarettes: He quit smoking around 01/2013. He smoked for up to 20 years. He smoked anywhere from 1-3 cigars per day and 1-3 pipes per day, so he could have up to a [id number] smoking history. MEDICATIONS: Include atorvastatin, Cialis, Ecotrin, valacyclovir, loratadine, and metoprolol ER. REVIEW OF SYSTEMS: RESPIRATORY: The patient's breathing was baseline. He was not short of breath. MUSCULOSKELETAL: He had good range of motion of his upper extremities. PHYSICAL EXAMINATION: VITAL SIGNS: The patient weighed 199.2 pounds on 05/03/2020, 198 pounds on 11/17/2019, 05/03/2020 blood pressure is 119/69; pulse 55; respirations 18; oxygen saturation 96%; temperature 98.1 degrees Fahrenheit. LYMPH NODES: He had no palpable cervical or supraclavicular lymphadenopathy. HEAD, EYES, EARS, NOSE AND THROAT: Mouth had no suspicious visible lesions or suspicious palpable lesions. On nasopharyngolaryngoscopy after administration of a small amount of 2% viscous lidocaine orally and 2% viscous lidocaine to the left nostril, there were no visible lesions in the nasopharynx [place] [address] RADIATION ONCOLOGY NOTE Name: SONAM VALENCIA Room: [facility]#: [id number] Admission: 05/03/20 Attend Phys: Juan Carlos Jackson MD Discharge: Date of : 41 Report #: [id number] lesions in the base of tongue. There were no visible lesions in the epiglottic area. HEART: Had a regular rate and rhythm without murmur. LUNGS: Clear to auscultation. LABORATORY DATA: He had lab work done on 04/22/2020 at [facility] where his TSH was 5.19, free T4 was 0.8. Sodium 139, potassium 4.2, BUN 17, creatinine 1.09, but then he had repeat labs done at [facility] on 04/23/2020 and his TSH was 3.12 which was within normal limits. BUN was 16, creatinine 1.25, sodium 139, potassium 4.5. RADIOLOGIC DATA: The patient had a CT of the neck area on 04/22/2020 which revealed prior left neck dissection. There is no evidence of neck mass or lymphadenopathy. He had persistent periodontal disease of the previously restored tooth #14. ASSESSMENT AND PLAN: 1. History of head and neck cancer. There is no evidence of head and neck cancer at this time. A requisition was given to the patient for TSH and complete metabolic panel, neck CT in about 1 year and the patient was asked to follow up with me afterwards. 2. Dental care. The patient receives his PreviDent fluoride from his dentist and at this point decided to just keep an eye on tooth #14 since he did not feel any discomfort from that area. He was told that if he ever should have an extraction that we can order hyperbaric treatments around the time of the procedure. 3. History of smoking. A screening chest CT will be ordered. 4. Hyperlipidemia. The patient takes atorvastatin and that is managed by his referring physicians. 5. Hypertension. The patient takes metoprolol and that is managed by his referring physicians. Thank you for allowing me to participate in the care of this patient. By: [id number] Jackson MD /berry
--- NOTE | ~2020-05-03 | ONC ---
[place] [address] RADIATION ONCOLOGY NOTE Name: SONAM VALENCIA Room: [facility].#: [id number] Admission: 05/03/20 Attend Phys: Juan Carlos Jackson MD Discharge: Date of : 41 Report #: [id number] THIS REPORT FOR: cc: Samra Mendez MD, Lin W. MD ~ Juan Carlos Jackson MD DATE OF SERVICE: 05/03/2020 RADIATION ONCOLOGY PROCEDURE NOTE REFERRING PHYSICIANS: Include Samra Mendez MD; Aniceto Davis MD; Raoul Kohler MD from Orthopedics; Patricio Lund DO from Cardiology; Geoff Oh MD. [facility] phone is [phone]. PRIMARY SITE AND HISTOPATHOLOGY: The patient received chemotherapy and radiation therapy for a stage 4A base of tongue cancer. The patient underwent a neck dissection and completed radiation therapy on 06/19/2013. FINDINGS: On nasopharyngolaryngoscopy via left nostril after administration of a small amount of 2% viscous lidocaine orally and 2% viscous lidocaine to left nostril via cotton swab, there were no visible lesions in the nasopharynx. There were no visible lesions in the base of tongue area. The true vocal cords were normally mobile bilaterally with no evidence of head and neck cancer. Thank you for allowing me to participate in the care of this patient. By: 1336 1413DMD kerline Sands
== END ==
LOC: M.RTH 04-19 09:45
PROVIDERS: ATTEND Radiology Radiation Oncology
DX: Z85.810 Personal history of malignant neoplasm of tongue (principal); Z92.21 Personal history of antineoplastic chemotherapy; Z92.3 Personal history of irradiation; Z85.89 Personal history of malignant neoplasm of other organs and systems; I10 Essential (primary) hypertension; Z87.891 Personal history of nicotine dependence